=== PATIENT | female | born 1985 | race American Indian/Alaskan Native ===

== ENCOUNTER 2018-06-25 19:40 | Inpatient (IN) | payer BC ==
[2018-06-25 20:25] VITALS: BMI 26.6
--- NOTE | 2018-06-25 20:38 | OBHP ---
Datetime: 06/25/2018 20:19 IP Adm Impression: Term, intrauterine IP Admit Plan: Admit to unit Admit Comment, IP Provider: 33yo at BAL: [birth year] presents with complaint of contractions since 4pm. Denies leakage of fluid and vaginal bleeding. Reports movements. PNC: Dr. Yee (Pvt) POb: g1: current , no complications PGYN: denies STDs, fibroids, cysts LMP 09/2017 PMHx: denies PSHx: facial cyst removal ALL: NKDA Meds: PNV Shx: denies x 3 FHX: denies Blood Type: A pos RPR: pending HIV: pending Rubella: immune GBS: unknown 1 hr Glucola: 114 HbSAg: negative A/P: 33yo at 37.2wks - Labor VSS Admit to Labor and Delivery - see H_P Abdomen - PN: Normal General - PN: Normal FHR - Baseline A Provider: 120 Membranes, Provider: Intact Contraction Comments Provider: q1 min Comments, ACOG Physical Exam: Abd: gravid Pelvic: SVE: /-2 IP Hx Assessment: The History has been Reviewed and is Current EGA AdmitDate IP: 37.2 IP Chief Complaint: Uterine contractions NICHD Variability Prov Fetus A: Moderate 6-25bpm NICHD Accel Fetus A IP Provider: 15X15 FHR Category Provider Fetus A: Category I Dilatation, Provider: 4 Effacement, Provider: 80 Station, Provider: -2
--- NOTE | 2018-06-25 20:46 | OBADHP ---
Datetime: 06/25/2018 20:19 Admit Comment, IP Provider: 33yo at BAL: [birth year] presents with complaint of contractions since 4pm. Denies leakage of fluid and vaginal bleeding. Reports movements. PNC: Dr. Yee (Pvt) POb: g1: current , no complications PGYN: denies STDs, fibroids, cysts LMP 09/2017 PMHx: denies PSHx: facial cyst removal ALL: NKDA Meds: PNV Shx: denies x 3 FHX: denies Blood Type: A pos RPR: pending HIV: pending Rubella: immune GBS: unknown 1 hr Glucola: 114 HbSAg: negative A/P: 33yo at 37.2wks - Labor VSS Continuous TOCO/EFM IVF - LR @125cc/hr for epidural now d/w Dr. Yee- will re-evaluate patient after epidural Abdomen - PN: Normal General - PN: Normal FHR - Baseline A Provider: 120 Membranes, Provider: Intact Contraction Comments Provider: q1 min Comments, ACOG Physical Exam: Abd: gravid Pelvic: SVE: 4/80/-2 IP Hx Assessment: The History has been Reviewed and is Current IP Chief Complaint: Uterine contractions NICHD Variability Prov Fetus A: Moderate 6-25bpm NICHD Accel Fetus A IP Provider: 15X15 FHR Category Provider Fetus A: Category I Dilatation, Provider: 4 Effacement, Provider: 80 Station, Provider: -2 EGA AdmitDate IP: 37.2 IP Adm Impression: Term, intrauterine IP Admit Plan: Admit to unit
[2018-06-25 20:52] LABS: BASO # 0.1 K/uL (0.0-0.2); BASO % 1.1 % (0.0-2.0); EOS # 0.4 K/uL (0.0-0.7); EOS % 4.8 % (0.0-4.0); HEMOGLOBIN 10.9 g/dL (11.0-16.0); LYMPH # 1.7 K/uL (1.0-4.3); LYMPH % 18.8 % (20.0-40.0); MEAN CELL VOLUME 85.5 fL (81.0-99.0); MEAN CORPUSCULAR HEMOGLOBIN 30.1 pg (27.0-31.0); MEAN CORPUSCULAR HGB CONC 35.3 g/dL (33.0-37.0); MEAN PLATELET VOLUME 7.8 fL (7.2-11.7); MONO # 0.7 K/uL (0.0-0.8); MONO % 7.5 % (0.0-10.0); NEUT % 67.8 % (50.0-75.0); NRBC % 0.1 % (0.0-2.0); RBC 3.61 Mil/uL (3.80-5.20); RED CELL DISTRIBUTION WIDTH 13.6 % (11.5-14.5); WHITE BLOOD COUNT 8.9 K/uL (4.8-10.8)
[2018-06-25] MEDS ORDERED: Lactated Ringer's 1,000 ML IV ONE (20:52)
[2018-06-25] MEDS ORDERED: Lactated Ringer's 1,000 ML IV SCH (21:00)
[2018-06-25 21:05] LABS: ALBUMIN 4.2 g/dL (3.5-5.0); ALT/SGPT 7 U/L (9-52); AST/SGOT 22 U/L (14-36); BLOOD UREA NITROGEN 3 mg/dL (7-17); CALCIUM 9.1 mg/dl (8.6-10.4); GFR NON-AFRICAN AMERICAN > 60
[2018-06-25 21:11] LABS: SQUAMOUS EPITHIAL 33 /hpf (0-5); URINE BACTERIA MOD (<OCC); URINE BILIRUBIN NEGATIVE (NEGATIVE); URINE BLOOD 1+ (NEGATIVE); URINE CLARITY Hazy (Clear); URINE COLOR Yellow (YELLOW); URINE GLUCOSE (UA) NORMAL (Normal); URINE LEUKOCYTE ESTERASE 3+ Leu/uL (Negative); URINE PROTEIN 1+ mg/dL (NEGATIVE); URINE UROBILINOGEN NORMAL mg/dL (0.2-1.0)
[2018-06-25] MEDS ORDERED: Bupivacaine HCl/FentaNYL Cit 100 ML EPI ONE (21:19)
[2018-06-26] MEDS ORDERED: Bupivacaine HCl/FentaNYL Cit 100 ML EPI ONE ×2 (01:53→07:57)
[2018-06-26] MEDS ORDERED: Lidocaine 2% MPF (5 ml) Inj ONE ×4 (07:57→12:43)
--- NOTE | 2018-06-26 08:20 | OBPN ---
Datetime: 06/25/2018 20:19 IP Progress Impression: Normal progression of labor; Reactive non-stress test IP Informed Consent Obtain: Vaginal Delivery IP Procedures: Sterile Vag Exam IP Progress Plan: Continue present management; Anticipate Vaginal Delivery Membranes, Provider: Ruptured Contraction Comments Provider: 1-2 min FHR - Baseline A Provider: 120 Gestation - Est Wks by US: 37.3 Presentation-Admit: Vertex IP Progress Note Comment: Pt seen and examined per Dr. Yee's request. tracing reassuring for the most part. Baby sleeping UC's Q 1-2 mins and pt in pain. Anesthesia aware and will come to help GERARDO CEE, 100%, [address] Yee aware and request to sit the patient up and reassess in 1 hr and call her Anticipate a vaginal delivery NICHD Accel Fetus A IP Provider: 15X15 FHR Category Provider Fetus A: Category I NICHD Variability Prov Fetus A: Moderate 6-25bpm Dilatation, Provider: AL Effacement, Provider: 100 Station, Provider: 0 NICHD Decel Fetus A IP Provider: None
[2018-06-26] MEDS ORDERED: Oxytocin 30 UNIT 30 UNITS/500 ML BAG IV SCH (10:30)
[2018-06-26] MEDS ORDERED: Oxytocin 30 UNIT 30 UNITS/500 ML BAG IV ONE (11:25)
[2018-06-26] MEDS ORDERED: Penicillin G Potassium 2.5 MU in Dextrose 5% In Water 50 ML IV SCH (12:30)
--- NOTE | 2018-06-26 13:04 | OBDS ---
DELIVERY PERSONNEL Delivery Doctor: Jewell Yee MD Anesthesiologist: Vinita Rao MD MATERNAL INFORMATION Delivery Anesthesia: Epidural Medications in Delivery: none Placenta Cultured: No Maternal Complications: None RN Comments: iliana mcnamara rn present to take care of baby, Dr mccurdy present to assess baby Provider Comments: pt was fully dilated and pushing. atrumatic, spontanoeus delivery of head. Declin ed right mediolateral lepistiotmy. No Nuchal cord noted. Atramtic, sponatneojus delivery of atnerior followed by posterior shoulder followed by delivery of the body. body oral and nasal passags of the baby were bulb suctioned. umbilical cord was clamped and cut. Baby handed to mother on abdomen wtih R N assistance. cord glood adn cord gases collected and sent x 2. spontaneous delivery of intact placen ta with membrena. fundus firm. good hemostaiss. Second degree perineal laceration noted and repaired with with 2-0 and 3-0 chromic adn local anesthetic. good hemostaiss, no complications live male infnat cephalic presentation agpars 6, 8, 9 weigh of 8lbs 1ounces ebl 400ml no complications LABOR SUMMARY EDC: 07/14/2018 00:00 No. Babies in Womb: 1 Attempted: No Labor Anesthesia: Epidural LABOR INFORMATION Onset of Labor: 06/26/2018 12:00 Complete Dilatation: 06/26/2018 11:20 Oxytocin: N/A Group B Beta Strep: Positive Antibiotics # of Doses: 2 Antibiotics Time of Last Dose: 1200pm Steroids Given: None Reason Steroids Not Administered: Not Applicable MEMBRANES Membranes Rupture Method: Artificial Rupture of Membranes: 06/26/2018 07:41 Length of Rupture (hrs): 4.60 Amniotic Fluid Color: Bloody Amniotic Fluid Amount: Moderate Amniotic Fluid Odor: Normal STAGES OF LABOR Stage 1 hrs: 0 Stage 1 min: -40 Stage 2 hrs: 0 Stage 2 min: 57 Stage 3 hrs: 0 Stage 3 min: 20 Total Time in Labor hrs: 0 Total Time in Labor min: 37 VAGINAL DELIVERY Episiotomy: None Laceration Extension: N/A Laceration Type: Perineal Other Laceration: 2nd degree perineal Laceration Repair: Yes Initial Vag Sponge Count: 10 Final Vag Sponge Count: 10 Initial Vag Sharps Count: 3 Final Vag Sharps Count: 3 Sponge Count Correct: Yes Sharps Count Correct: Yes Count Comment: 6 needles BABY A INFORMATION Infant Delivery Date/Time: 06/26/2018 12:17 Method of Delivery: Vaginal Born in Route : No : N/A Forceps: N/A Vacuum Extraction: N/A Shoulder Dystocia : No SHOULDER DYSTOCIA BABY A Infant Delivery Date/Time: 06/26/2018 12:17 PRESENTATION/POSITION BABY A Presentation: Cephalic Cephalic Presentation: Vertex Vertex Position: Left Occipital Anterior Breech Presentation: N/A PLACENTA INFORMATION BABY A Placenta Delivery Time : 06/26/2018 12:37 Placenta Method of Delivery: Spontaneous Placenta Status: Delivered SCORES BABY A Heart Rate 1 min: >100 bpm Resp Effort 1 min: Slow, Irregular Reflex Irritability 1 min: Grimace Muscle Tone 1 min: Some Flexion of Extremities Color 1 min: Body [place], Extremities Blue SCORE 1 MIN: 6 Heart Rate 5 min: >100 bpm Resp Effort 5 min: Good Cry Reflex Irritability 5 min: Cough or Sneeze or Pulls Away Muscle Tone 5 min: Some Flexion of Extremities Color 5 min: Body [place], Extremities Blue SCORE 5 MIN: 8 Heart Rate 10 min: >100 bpm Resp Effort 10 min: Good Cry Reflex Irritability 10 min: Cough or Sneeze or Pulls Away Muscle Tone 10 min: Active Motion Color 10 min: Body [place], Extremities Blue SCORE 10 MIN: 9 INFANT INFORMATION BABY A Gestational Age at Delivery: 37.3 Gestational Status: Outcome : Liveborn Infant Condition : Fair Sex: Male IDENTIFICATION/MEDS BABY A ID Band Number: [id number] ID Band Location: Left Leg; Left Arm Sensor Applied: Yes Sensor Number: [id number] Sensor Location : Cord Clamp WEIGHT/LENGTH BABY A Birthweight (gms): 3655 Infant Weight (lb): 8 Infant Weight (oz): 1 Length Inches: 20.50 Infant Length cms: 52.1 CORD INFORMATION BABY A No. Cord Vessels: 3 Nuchal Cord : N/A Cord Blood Taken: Yes Infant Suction: Mouth; Nose ASSESSMENT BABY A Complications: None Physical Findings at Delivery: Within Normal Limits Physical Findings Other: dr castro called at one minute 6, no noted cry at one minute, hr 140, r paco 30 Bilingual Receptionist/ALS Called : No Care By: dr castro
[2018-06-26] MEDS ORDERED: Oxycodone/Acetaminophen 5/325 mg Tab PO PRN ×2 (13:12)
[2018-06-26] MEDS ORDERED: Benzocaine/Menthol 20%-0.5% Topical Spray (60 ml) TOP PRN (13:12)
[2018-06-27 08:41] LABS: BASO # 0.1 K/uL (0.0-0.2); BASO % 0.8 % (0.0-2.0); EOS # 0.1 K/uL (0.0-0.7); EOS % 1.2 % (0.0-4.0); LYMPH # 2.2 K/uL (1.0-4.3); LYMPH % 18.9 % (20.0-40.0); MEAN CELL VOLUME 85.2 fL (81.0-99.0); MEAN CORPUSCULAR HEMOGLOBIN 29.3 pg (27.0-31.0); MEAN CORPUSCULAR HGB CONC 34.3 g/dL (33.0-37.0); MEAN PLATELET VOLUME 7.9 fL (7.2-11.7); MONO # 0.8 K/uL (0.0-0.8); MONO % 6.6 % (0.0-10.0); NEUT # 8.3 K/uL (1.8-7.0); NEUT % 72.5 % (50.0-75.0); NRBC % 0.1 % (0.0-2.0); RBC 2.79 Mil/uL (3.80-5.20); RED CELL DISTRIBUTION WIDTH 13.3 % (11.5-14.5); WHITE BLOOD COUNT 11.5 K/uL (4.8-10.8)
[2018-06-27 08:47] LABS: HEMOGLOBIN 8.2 g/dL (11.0-16.0)
--- NOTE | 2018-06-27 09:43 | OBDCSUM ---
Datetime: 06/27/2018 09:42 Discharged to, Provider: Home Follow up at, Provider: DR Yee Disch Instr Activity: Normal activity Disch Instr Diet: Regular Discharge Instructions, Provider: Routine instructions given Discharge Diagnosis, Provider: Term Delivered Discharge Time: 06/28/2018 09:42 Follow up in weeks, Provider: 6 weeks Disch Referrals: None Contraception discussed, Prov: Yes Disch Activity Restrictions: No sexual activity; Nothing in vagina - [place], tampons, douche Discharge Comment, Provider: dc in am Contraception after Delivery: Not Planning to Use
--- NOTE | 2018-06-27 09:43 | OBPPN ---
Datetime: 06/27/2018 07:24 PP Pain Prov: Within normal limits PP Nausea Prov: Denies PP Flatus Prov: Yes PP BM Prov: No PP Breasts Prov: Normal PP Heart Prov: Normal PP Lungs Prov: Normal PP Abdomen/Uterus Prov: Normal PP Lochia Prov: Normal PP Vulva/Perineum Prov: Normal PP CVA Tenderness Prov: Normal PP Extremities Prov: Normal PP C/S Incision Prov: Not Applicable PP Progress Prov: Normal PP Comments Phys Exam Prov: PE: Gen: in no acute distress Heart: RRR, systolic murmur Lungs: CTA b/l, no W/R/R Abd: soft, +BS, nontender, fundal height at level of umbilicus minima lochia, non fousl semlling Ext: 1+ pitting edema b/l, no calf tenderness PP Impression Prov: Normal progression PP Plan Prov: Continue present management PP Progress Note Prov: Patient was seen and examined at bedside in no acute distress. Patient report s her legs are slightly sore from delivery, otherwise she has no complaints. The patient is having di fficulty with and producing milk. She has flatus but has no had a BM. She is ambulating without difficulty. She denies abdominal pain, dysuria, nausea, vomiting, fevers. Plan: 33 year old , s/p , PPD#1 1. Continue pain management- Motrin prn, Percocet prn 2. Continue Colace and senna for constipatio 3. Started Feosol 325mg PO BID 4. Started Anusol for hemorrhoids 5. Encouraged to continue and ambulation 6. moving consultant for assistance with Ruthann Durán, [id number] agree with above pt wseen adn eamiend encoaurge braset feeidng/ambauiton am labs pain manaemtne possible dc otmororw Vital Signs Provider PP: Reviewed; Within Normal Limits
[2018-06-27] MEDS: Multiple Vitamins Tab PO SCH (10:49)
[2018-06-27] MEDS: Hydrocortisone 2.5% Rectal Cream(30 gm) PR SCH ×2 (11:19→17:57)
[2018-06-28 10:08] VITALS: BP 115/75; PULSE 68; RESP 18; TEMP 97.5; O2SAT 100
[2018-06-28] MEDS: Hydrocortisone 2.5% Rectal Cream(30 gm) PR SCH (10:42)
[2018-06-28] MEDS: Multiple Vitamins Tab PO SCH (11:03)
== END 2018-06-28 11:15 | disposition home or self-care (01) | DRG 807 ==
LOC: C.EROB 19:40 → C.4D 20:21 → C.4M 06-26 14:51
PROVIDERS: ADMIT Obstetrics & Gynecology; ATTEND Obstetrics & Gynecology
PROC: 10E0XZZ Delivery of Products of Conception, External Approach (ICD-10-PCS; principal; 2018-06-26)
PROC: 0KQM0ZZ Repair Perineum Muscle, Open Approach (ICD-10-PCS; 2018-06-26)
PROC: 0W8NXZZ Division of Female Perineum, External Approach (ICD-10-PCS; 2018-06-26)
PROC: 10907ZC Drainage of Amniotic Fluid, Therapeutic from Products of Conception, Via Natural or Artificial Opening (ICD-10-PCS; 2018-06-26)
DX: O99.824 Streptococcus B carrier state complicating childbirth (principal); O70.1 Second degree perineal laceration during delivery; Z3A.37 37 weeks gestation of pregnancy; Z37.0 Single live birth